=== PATIENT | male | born 1980 | race Caucasian/White ===

== ENCOUNTER 2022-09-26 11:22 | Outpatient (CLI) | payer OTHER, SELFPAY ==
--- OUTSIDE RECORDS SUMMARY | 2022-09-26 11:27 | XMS_ITS ---
:1980 Author Organization [facility] Address [facility] [place] [address] Care Team Providers Name Role Phone OliviaJonna pemberton Unavailable Unavailable PROBLEMS Unknown Problems ALLERGIES No Information ENCOUNTERS IMMUNIZATIONS No Known Immunizations SOCIAL HISTORY No smoking Hx information available REASON FOR REFERRAL FUNCTIONAL STATUS PLAN OF CARE VITAL SIGNS MEDICATIONS Unknown Medications PROCEDURES RESULTS No Results REASON FOR VISIT Insurance Providers
[2022-09-26 18:12] LABS: Albumin* 4.3 g/dL (3.3-5.0)
[2022-09-26 18:16] LABS: Alanine Aminotransferase* 32 U/L (4-50); Alkaline Phosphatase* 55 U/L (40-150); Aspartate Amino Transferase* 27 U/L (12-35); Bilirubin Direct* 0.2 mg/dL (0.0-0.5); Bilirubin Total* 0.8 mg/dL (0.1-1.5); Lipase* 652 U/L (23-300); Total Protein* 6.7 g/dL (6.0-8.3)
[2022-09-26 18:19] LABS: C Reactive Protein* < 0.5 mg/dL (0.5-1.0)
[2022-09-26 18:47] LABS: TSH With Reflex to FT4* 0.884 uIU/mL (0.270-4.200)
[2022-09-26 18:48] LABS: PSA Screen* 1.06 ng/mL (0.10-4.00)
== END 2022-09-26 11:23 | disposition home or self-care (01) ==
PROVIDERS: PCP Family Medicine; Visit Provider Emergency Medicine
DX: R63.4 Abnormal weight loss (principal); I10 Essential (primary) hypertension; E78.00 Pure hypercholesterolemia, unspecified; D68.51 Activated protein C resistance
CPT/HCPCS: 80076; 83690; 84153; 84443; 86140

== ENCOUNTER 2022-10-01 14:58 | Outpatient (CLI) | payer OTHER, SELFPAY ==
--- OUTSIDE RECORDS SUMMARY | 2022-10-01 15:00 | XMS_ITS ---
:1980 Author Organization [facility] Address [address] [place] [address] Care Team Providers Name Role Phone Jonna Baker Unavailable Unavailable PROBLEMS Unknown Problems ALLERGIES No Information ENCOUNTERS Encounter Location Date Diagnosis [facility] [address] [place], [place] [id number] [facility] [address], [place] [address] [facility] [address], [place] [address] [facility] [address] Aug, [place] [address] [facility] [address] Aug, [place] [address] IMMUNIZATIONS No Known Immunizations SOCIAL HISTORY Never Assessed REASON FOR REFERRAL FUNCTIONAL STATUS PLAN OF CARE VITAL SIGNS MEDICATIONS Unknown Medications PROCEDURES Procedure Date Ordered Result Body Site EEG CONT REC W/VID NEWSPAPER WRITER December 13, 2019 HOSPITAL DISCHARGE DAY December 14, 2019 VEEG EA 12-26HR CONT MNTR December 14, 2019 VEEG EA 12-26HR CONT MNTR December 13, 2019 EEG PHY/QHP EA INCR W/VEEG December 14, 2019 EEG PHY/QHP EA INCR W/VEEG December 13, 2019 RESULTS No Results REASON FOR VISIT Admit Scheduled 12/13/19, Pt called to cxl Appt Prior auth - Admit, New Admit-LM MRI PRIOR, New Admit - scheduled Insurance Providers Health Health Health Health Health Member Patient Patient Patient Patient Patient Subscriber Subscriber Subscriber Group Insurance Plan Plan Plan Plan ID Relationship Address Phone Name Date of ID Name Date of No Type Insurance Insurance Insurance Coverage to Subscriber Address Phone Name Dates HEALTHPART [phone] HEALTHPART self Jt 1979 [id number] NERS 1289 55 NERS Abdias [facility] [id number] [facility] [phone] LEAGUE OF self Jt [id number] [address] [address]
[2022-10-01 21:58] LABS: Chloride* 102 mmol/L (96-114); Potassium* 4.2 mmol/L (3.6-5.1); Sodium* 140 mmol/L (135-149)
[2022-10-01 22:01] LABS: Blood Urea Nitrogen* 12 mg/dL (5-24); Carbon Dioxide* 28 mmol/L (20-32); Creatinine* 1.3 mg/dL (0.5-1.5); Estimated Glomerular Filt Rate 70 ml/min; Glucose* 93 mg/dL (60-115)
[2022-10-01 22:02] LABS: Calcium* 9.4 mg/dL (8.4-10.6)
[2022-10-01 22:37] LABS: HIV 1/2/P24 Combo Screen* Negative (Negative)
[2022-10-01 22:45] LABS: Hepatitis C Virus Antibody* Negative (Negative)
== END 2022-10-01 14:59 | disposition home or self-care (01) ==
PROVIDERS: PCP Family Medicine; Visit Provider Emergency Medicine
DX: R63.4 Abnormal weight loss (principal); R74.8 Abnormal levels of other serum enzymes; I10 Essential (primary) hypertension; D68.51 Activated protein C resistance; E78.00 Pure hypercholesterolemia, unspecified
CPT/HCPCS: 80048; 83516; 86703; 86803

== ENCOUNTER 2022-10-28 11:54 | Outpatient (CLI) | payer OTHER, SELFPAY ==
[2022-10-28 10:08] LABS: Chloride* 107 mmol/L (96-114)
[2022-10-28 10:09] LABS: Albumin* 4.4 g/dL (3.3-5.0)
[2022-10-28 10:10] LABS: Potassium* 4.4 mmol/L (3.6-5.1); Sodium* 142 mmol/L (135-149)
[2022-10-28 10:11] LABS: Carbon Dioxide* 29 mmol/L (20-32); Creatinine* 1.3 mg/dL (0.5-1.5); Estimated Glomerular Filt Rate 70 ml/min
[2022-10-28 10:12] LABS: Alkaline Phosphatase* 50 U/L (40-150); Aspartate Amino Transferase* 24 U/L (12-35); Bilirubin Total* 0.8 mg/dL (0.1-1.5); Blood Urea Nitrogen* 14 mg/dL (5-24); Calcium* 9.4 mg/dL (8.4-10.6); Cholesterol* 158 mg/dL (90-199); Glucose* 93 mg/dL (60-115); Lipase* 370 U/L (23-300); Total Protein* 6.9 g/dL (6.0-8.3)
[2022-10-28 10:13] LABS: Alanine Aminotransferase* 28 U/L (4-50); HDL Cholesterol* 40 mg/dL (>=40); LDL Cholesterol Calculated 80 mg/dL (<100); Triglycerides* 189 mg/dL (40-149)
== END 2022-10-28 11:55 | disposition home or self-care (01) ==
PROVIDERS: PCP Family Medicine; Visit Provider Family Medicine
DX: Z00.00 Encounter for general adult medical examination without abnormal findings (principal); R74.8 Abnormal levels of other serum enzymes; Z13.6 Encounter for screening for cardiovascular disorders
CPT/HCPCS: 80053; 80061; 83690

== ENCOUNTER 2022-11-29 15:14 | Outpatient (CLI) | payer OTHER, SELFPAY ==
[2022-11-29 17:29] LABS: Lipase* 405 U/L (23-300)
== END 2022-11-29 15:15 | disposition home or self-care (01) ==
LOC: NFLDREF 15:14
PROVIDERS: PCP Family Medicine; Visit Provider Family Medicine
DX: R74.8 Abnormal levels of other serum enzymes (principal)
CPT/HCPCS: 83690

== ENCOUNTER 2022-12-12 10:12 | Outpatient (CLI) | payer OTHER, SELFPAY ==
--- OUTSIDE RECORDS SUMMARY | 2022-12-12 10:16 | XMS_ITS ---
:1980 Author Organization [facility] Address [address] [place] [address] Care Team Providers Name Role Phone Jonna Baker Unavailable Unavailable PROBLEMS Unknown Problems ALLERGIES No Information ENCOUNTERS Encounter Location Date Diagnosis [facility] [address] [place], [place] [id number] [facility] [address], [place] [address] [facility] [address], [place] [address] [facility] [address] Aug, [place] [address] [facility] [address] Aug, [place] [address] IMMUNIZATIONS No Known Immunizations SOCIAL HISTORY Never Assessed REASON FOR REFERRAL FUNCTIONAL STATUS PLAN OF CARE VITAL SIGNS MEDICATIONS Unknown Medications PROCEDURES Procedure Date Ordered Result Body Site EEG CONT REC W/VID BUREAU CHIEF December 13, 2019 HOSPITAL DISCHARGE DAY December [...] Coverage to Subscriber Address Phone Name Dates LEAGUE OF [phone] LEAGUE OF self Jt [id number] [address] [address] HEALTHPART [phone] HEALTHPART self Jt 1980 [id number] NERS 1289 55 NERS Abdias [facility] [id number]
== END 2022-12-12 10:13 | disposition home or self-care (01) ==
PROVIDERS: PCP Family Medicine; Visit Provider Family Medicine
DX: Z00.00 Encounter for general adult medical examination without abnormal findings (principal); I10 Essential (primary) hypertension; E78.00 Pure hypercholesterolemia, unspecified; D68.51 Activated protein C resistance; R74.8 Abnormal levels of other serum enzymes; R63.4 Abnormal weight loss
CPT/HCPCS: 80053; 82150; 83690; 86803; 87340

== ENCOUNTER 2022-12-16 10:12 | Outpatient (CLI) | payer OTHER, SELFPAY | END 2022-12-16 10:13 | disposition home or self-care (01) | LOC: NFLDREF 11:02 | PROVIDERS: PCP Family Medicine; Visit Provider Family Medicine | DX: Z00.00 Encounter for general adult medical examination without abnormal findings (principal); R63.4 Abnormal weight loss; R74.8 Abnormal levels of other serum enzymes | CPT/HCPCS: 82150; 83615 ==

== ENCOUNTER 2022-12-18 08:06 | Outpatient (CLI) | payer OTHER, SELFPAY ==
--- OUTSIDE RECORDS SUMMARY | 2022-12-18 08:08 | XMS_ITS ---
:1980 Author Organization [facility] Address [address] [place] [address] Care Team Providers Name Role Phone Jonna Baker Unavailable Unavailable PROBLEMS Unknown Problems ALLERGIES No Information ENCOUNTERS Encounter Location Date Diagnosis [facility] [address] [place], [place] [id number] [facility] [address], [place] [address] [facility] [address], [place] [address] [facility] [address] Aug, [place] [address] [facility] [address] Aug, [place] [address] IMMUNIZATIONS No Known Immunizations SOCIAL HISTORY Never Assessed REASON FOR REFERRAL FUNCTIONAL STATUS PLAN OF CARE VITAL SIGNS MEDICATIONS Unknown Medications PROCEDURES Procedure Date Ordered Result Body Site EEG CONT REC W/VID CHIEF OF STAFF December 13, 2019 VEEG EA 12-26HR CONT MNTR December 14, 2019 VEEG EA 12-26HR CONT MNTR December 13, 2019 HOSPITAL DISCHARGE DAY December 14, 2019 EEG PHY/QHP EA INCR W/VEEG December 13, 2019 EEG PHY/QHP EA INCR W/VEEG December 14, 2019 RESULTS No Results REASON FOR VISIT [...] [phone] HEALTHPART self Jt 1979 [id number] NERS [address] [facility] [id number] [facility] [phone] LEAGUE OF self Jt [id number] [address] [address]
--- NOTE | 2022-12-18 09:15 | CRLHL7_ITS ---
For Patients: As a result of the Century Cures Act, medical imaging exams and procedure reports are released immediately into your electronic medical record. You may view this report before your referring provider. If you have questions, please contact your health care provider. CLINICAL HISTORY: WEIGHT LOSS, ELEVATED LIPASE COMPARISON: CT 10/03/2022 TECHNIQUE: Real time pagan scale imaging and color Doppler analysis was performed of the abdomen. FINDINGS: Sonographic imaging demonstrates normal size and uniform echotexture of the liver. The spleen is of normal size. The pancreas appears normal. The proximal abdominal aorta and IVC appear normal. There is no evidence of ascites. The gallbladder is of normal size and there may be slight layering sludge within the gallbladder lumen. The gallbladder wall measures 1 mm in thickness. The common bile duct measures 4 mm in size within the madisyn hepatis. The right kidney measures 10.8 cm in length and the left kidney measures 11.0 cm. There is no evidence of a renal calculus or hydronephrosis. Nonobstructing renal calculi again noted along with small renal cortical cysts. IMPRESSION: Nonobstructing renal calculi. Slight sludge in the gallbladder lumen may be present. Normal liver and pancreas. Dictated by Shadi Bowen MD @ 12/18/2022 11:02:07 AM (Electronically Signed)
== END 2022-12-18 08:07 | disposition home or self-care (01) ==
LOC: US 08:07
PROVIDERS: PCP Family Medicine; Visit Provider Family Medicine
DX: R74.8 Abnormal levels of other serum enzymes (principal); N20.0 Calculus of kidney; R63.4 Abnormal weight loss
CPT/HCPCS: 76700

== ENCOUNTER 2023-01-15 09:20 | Outpatient (CLI) | payer OTHER, SELFPAY | END 2023-01-15 09:21 | disposition home or self-care (01) | LOC: LKVREF 16:41 | PROVIDERS: Emergency Medicine; PCP Family Medicine; Referring Provider Family Medicine; Visit Provider Family Medicine | DX: R74.8 Abnormal levels of other serum enzymes (principal) | CPT/HCPCS: 83615; 83690 ==

== ENCOUNTER 2023-06-20 16:18 | Outpatient (CLI) | payer OTHER, SELFPAY ==
--- OUTSIDE RECORDS SUMMARY | 2023-06-26 12:26 | XMS_ITS ---
Author Name Jonna Baker Address [address] [place] [address] Organization [facility] Address [address] [place] [address] Care Team Providers Care Director Business Name Role Phone OliviaJonna pemberton Unavailable [phone] PROBLEMS Unknown Problems ALLERGIES No Information ENCOUNTERS Encounter Location Date Diagnosis [facility] [address] [place] [address] Dec, [facility] [address] [place] [phone] Oct, [facility] [address] [place] [address] Oct, [facility] [address] [place] [address] Aug, [facility] [address] [place] [phone] Aug, IMMUNIZATIONS No Known Immunizations SOCIAL HISTORY Never Assessed REASON FOR REFERRAL FUNCTIONAL STATUS PLAN OF CARE VITAL SIGNS MEDICATIONS Unknown Medications PROCEDURES Procedure Date Ordered Result Body Site EEG CONT REC W/VID MANAGER ENGLISH December 13, 2019 VEEG EA 12-26HR CONT [...] - Admit, New Admit-LM MRI PRIOR, New Admit- scheduled Insurance Providers Health Insurance Type Health Plan Insurance Address Health Plan Insurance Phone Health Plan Insurance Name Health Plan Coverage Dates Member ID Patient Relationship to Subscriber Patient Address Patient Phone Patient Name Patient Date of Subscriber ID Subscriber Name Subscriber Date of Group No HEALTHPART NERS [address] [facility] [id number] HEALTHPART NERS self Jt Calero [id number] [address] [facility] self Jt Calero [id number]
== END 2023-06-20 16:19 | disposition home or self-care (01) ==
LOC: NFLDREF 06-26 12:24
PROVIDERS: PCP Family Medicine; Referring Provider Family Medicine; Visit Provider Family Medicine
DX: R74.8 Abnormal levels of other serum enzymes (principal)
CPT/HCPCS: 83690

== ENCOUNTER 2023-07-30 09:15 | Outpatient (CLI) | payer OTHER, SELFPAY ==
--- OUTSIDE RECORDS SUMMARY | 2023-08-02 13:18 | XMS_ITS | Patient Health Record ---
Author Name Unknown Organization Unknown Care Team Providers Care Full Stack Software Developer Name Role Phone Fabricio Gaston MD Primary Care Provider Unavailab Suly Laws Unavailable [phone] Khloe Underwood Unavailable Unavailable REASON FOR REFERRAL No Information PLAN OF TREATMENT No Information Insurance Providers Payer Name Payer Address Payer Phone Subscriber Number Group Number Insured Name Patient Relationship to Insured Coverage Start Date Coverage End Date [address] [phone] 5-[facility] [id number] Jt Calero Self - patient is the insured 6 [facility] [address] [place], [place] [id number] Jt Calero Self - patient is the insured 9
== END 2023-07-30 09:16 | disposition home or self-care (01) ==
LOC: NFLDREF 08-02 13:17
PROVIDERS: PCP Family Medicine; Referring Provider Family Medicine; Visit Provider Family Medicine
DX: R74.8 Abnormal levels of other serum enzymes (principal)
CPT/HCPCS: 83690

== ENCOUNTER 2024-03-19 09:16 | Outpatient (CLI) | payer OTHER, SELFPAY ==
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
--- OUTSIDE RECORDS SUMMARY | 2024-03-19 09:20 | XMS_ITS | Clinical Summary ---
Author Organization [facility] [place] [address] Phone Care Team Providers Care Heel Shaver Name Role Phone Pcp, No Primary Care Provider UnavailCata Long OTR/L Unavailable [phone] Anastasia Funes DO Unavailable [phone] Source Comments [employer] is fully rolled out on MC10. Last update 03/10/09.[facility] Allergies Active Allergy Reactions Criticality Noted Date [...] habits have been strongly encouraged. Please see [facility] for most recent results. Last Assessment & Plan: He will see PCP latter this week and will have blood work done then. He understands the risks of polypharmacy and SGA. Phobia, flying 12/23/2019 Overview: Pt has needed 20 mg of valium to manage fear of flying. Last Assessment & Plan: He did well with his trip to [place], reports the combination of valium and current [...] and panic Recurrent major depressive disorder, in [facility]ha [facility] ([facility]) 10/28/2019 Overview: Depression has developed as symptoms [...] nasal bon e, initial encounter 12/04/2015 10/29/2019 Encounters Date Type Department Care Team Description 03/16/2024 10:40 AM CDT Telemedicine [facility] Psych[facility] [address] [place] [address] Anastasia Funes, PTSD (post-traumatic stress disorder) (Primary Dx); High risk medication use; Panic disorder without agoraphobia; Recurrent major depressive disorder, in remission (CMS); TOMASA (generalized anxiety disorder) Discharge Disposition: Discharged to home or self care (routine discharge) 03/08/2024 Refill [facility] Psych[facility] [address] [place] [address] Anastasia Funes, DO Other 01/20/2024 10:40 AM CDT Telemedicine [facility] Psych[facility] [address] [place] [address] Anastasia Funes, DO PTSD (post-traumatic stress disorder) (Primary Dx); TOMASA (generalized anxiety disorder); Panic disorder without agoraphobia; Hypnagogic hallucinations; Phobia, flying; High risk medication use Discharge Disposition: Discharged to home or self care (routine discharge) 01/14/2024 Refill [facility] Psych[facility] [address] [place] [address] Anastasia Funes, DO Other 01/10/2024 Refill [facility] [address] [place] [address] Anastasia Funes, DO Other 01/07/2024 Refill [facility] [address] [place] [address] Anastasia Funes, DO Other from Last 3 Months Immunizations Name Administration Dates Next Due Tetanus [...] CDT Oxygen Saturation 96% 12/05/2015 4:16 AM [employer] REPAIRER Inhaled Oxygen Concentration - - Weight 76.7 kg (169 lb) 06/23/2023 10:14 AM CDT Height 177.8 cm (5' 10) 08/27/2022 10:03 AM [employer] REPAIRER Body Mass Index 24.25 08/27/2022 10:03 AM [employer] REPAIRER Plan of Treatment Upcoming Encounters Date Type Department Care Team (Late st Contact Info) Description 06/14/2024 10:20 AM CDT Office Visit [facility] Psych[facility] [address] [place] [address] Anastasia Funes DO [address] [place] [address] Scheduled Discharge Disposition: Discharged to home or self care (routine discharge) Health Maintenance Due Date Last Done Comments Dental Oral Exam 1980 Dental Prophylaxis 1979 Dental X-Ray: Bitewings 1979 Lipid Screening 1980 Periodontal Maintenance 1993 HIV Screening 1994 PREVENTATIVE VISIT 1997 HEALTH MAINTENANCE PROTOCOL 1998 Imm: HepB (1 of 3 - 19+ 3-dose series) 1998 COVID-19 Vaccine (5 - 2023-24 season) 2023 06/20/2022, 08/06/2021, 01/09/2021, Additional history exists Depression Management 05/10/2024 11/10/2023 TD/TDAP ADULTS 12/03/2025 12/04/2015 INFLUENZA VACCINE Completed 08/19/2023 HIB Aged Out No longer eligi ble based on patient's age to complete this topic HPV Aged Out No longer eligi ble based on patient's age to complete this topic Imm: Pneumonia Peds or At-Risk less than 65 years Aged Out No longer yue gible based on patient's age to complete this topic RSV Immunoglobulin Aged Out No longer eligible based on patient's age to complete this topic [id number] Workers Comp Employer 1980 %Jt Calero [address] [place] [address] Jt Calero [employer] 1980 [address] [place] [address] Advance Directives For more information, please contact: [phone] * Full Code (Latest Code Status on File) Date Activated Date Inactivated Comments 12/04/2015 8:41 AM 12/05/2015 3:08 PM Question Answer Comments Discussed Code Status With Whom? Not discussed Care Teams Heel Shaver Relationship Specialty Start Date End Date Pcp, [place] [address] PCP - General 12/04/15 Cata Velasco, OTR/L [facility] [address] [place], [place] [phone] Occupational Therapy 12/27/15 Anastasia Funes DO [address] [place], [place] [address] Psychiatrist Outpatient Psychiatry 02/16/18
--- OUTSIDE RECORDS SUMMARY | 2024-03-19 09:20 | XMS_ITS | Encounter Summary ---
Author Organization [facility] Address [address] [place] [address] Phone Care Team Providers Care Director Skills Name Role Phone Pcp, No Primary Care Provider Unavailrashi e Cata Velasco OTR/L Unavailable Anastasia Funes DO Unavailable Reason for Visit * Reason Comments Other Encounter Details Date Type Department Care Team (Late st Contact Info) Description 03/08/2024 Refill [facility] [place] [place] Psych[facility] [address] [place], [place] [id number] Anastasia Funes, DO [address] [place] [address] Other Social History Tobacco Use Types Packs/Day Years [...] on file documented as of this encounter Miscellaneous Notes * Telephone Encounter - Anastasia Potter RN - 03/08/2024 9:30 AM CDT Patient requesting refill on lorazepam 1 mg tabs Last seen by Dr. Funes on 01/20/24 Pending appt on 03/16/[address] Funes to approve/deny documented in this encounter Plan of Treatment Upcoming Encounters Date Type Department Care Team (Late st Contact Info) Description 06/14/2024 10:20 AM CDT Office Visit [facility] [place] [place] Psych[facility]ry [facility] 

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
--- OUTSIDE RECORDS SUMMARY | 2024-03-19 09:21 | XMS_ITS | Encounter Summary ---
Author Organization [facility] Address [address] [place] [address] Phone Care Team Providers Care Opto Mechanical Technician Name Role Phone Pcp, No Primary Care Provider Unavailrashi e Cata Velasco OTR/L Unavailable [phone] Anastasia Funes DO Unavailable [phone] Reason for Visit * Reason Comments Other Encounter Details Date Type Department Care Team (Late st Contact Info) Description 01/07/2024 Refill [facility] Psych[facility] [address] [place] [address] Anastasia Funes DO [address] [place], [place] [address] Other Social History Tobacco Use Types Packs/Day [...] on file documented as of this encounter Plan of Treatment Upcoming Encounters Date Type Department Care Team (Late Contact Info) Description 06/14/2024 10:20 AM CDT Office Visit [facility] Psychiatry Clinic [facility] [address] [place] [address] Anastasia Funes DO [address] [place] [address] Scheduled Discharge Disposition: Discharged to home or self care (routine discharge) documented as of this encounter Visit Diagnoses Not on filedocumented in this encounter Additional Health Concerns Assessment Noted Time PHQ-9 Depression Total Score: 2 11/10/19 24 11:11 AM SITE SUPERINTENDENT PHQ-2 Depression Total Score: 0 11/10/19 11:11 AM SITE SUPERINTENDENT documented as of this encounter Care Teams Opto Mechanical Technician Relationship Specialty Start Date End Date Pcp, No [facility] [place] [address] PCP - General 12/04/15 Cata Velasco, OTR/L [facility] [address] [place] [address] Occupational Therapy 12/27/15 Anastasia Funes DO [address] [place] [address] Psychiatrist Outpatient Psychiatry 02/16/18 documented as of this encounter
--- OUTSIDE RECORDS SUMMARY | 2024-03-19 09:21 | XMS_ITS | Encounter Summary ---
Author Organization [facility] Address [address] [place] [address]. [place] [address] Phone Care Team Providers Care Car Rider Name Role Phone Pcp, No Primary Care Provider Unavailrashi e Cata Velasco OTR/L Unavailable Anastasia Funes DO Unavailable Encounter Details Date Type Department Care Team (Late Contact Info) Description 10/16/2018 Pharmacy Prior Authorization [facility] [address] [facility] [address] [place] [address] Anastasia Funes DO [address] [place], [place] [address] Social History Tobacco Use Types Packs/Day Years Used Date Smoking Tobacco: Former Smokeless Tobacco: Never Alcohol Use Standard Drinks/Week Comments No 0 (1 standard drink = 0.6 oz pur e alcohol) PHQ-2 Answer Date Recorded PHQ-2 Score 1 07/01/2018 Sex and Gender Information Value Date Recorded Sex Assigned at Not on file Gender Identity Not on file Sexual Orientation Not on file documented as of this encounter Plan of Treatment Upcoming Encounters Date Type Department Care Team (Late Contact Info) Description 06/14/2024 10:20 AM CDT Office Visit [facility] Psych[facility] [address] [place] [address] Anastasia Funes DO [address] [place], [place] [address] Scheduled Discharge Disposition: Discharged to home or self care (routine discharge) documented as of this encounter Visit Diagnoses Not on filedocumented in this encounter Additional Health Concerns Assessment Noted Time PHQ-9 Depression Total Score: 9 12/24/19 18 9:19 AM CDT PHQ-2 Depression Total Score: 1 12/24/19 18 9:19 AM CDT documented as of this encounter Care Teams Car Rider Relationship Specialty Start Date End Date Pcp, No [facility] [place] [address] PCP - General 12/04/15 Cata Velasco, OTR/L [facility] [address] [place], [place] [address] Occupational Therapy 12/27/15 Anastasia Funes DO [address] [place] [address] Psychiatrist Outpatient Psychiatry 02/16/18 documented as of this encounter
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
--- OUTSIDE RECORDS SUMMARY | 2024-03-19 09:21 | XMS_ITS | Encounter Summary ---
Author Organization [facility] Address [address] [place] [address] Phone Care Team Providers Care Content Manager Name Role Phone Pcp, No Primary Care Provider Unavailrashi e Cata Velasco OTR/L Unavailable Anastasia Funes DO Unavailable [phone] Reason for Visit * Reason Comments Other Encounter Details Date Type Department Care Team (Late st Contact Info) Description 01/10/2024 Refill [facility] [address] [place], [place] [id number] Anastasia Funes, DO [address] [place], [place] [id number] Other Social History Tobacco Use Types Packs/Day [...] encounter Miscellaneous Notes * Telephone Encounter - Bryant Rico RN - 01/12/2024 8:56 AM CDT Refill request for Ativan 1 mg 3 times daily. Last prescription was issued on 08/19/2023 for 90 tablets with 2 refills, so it appears client is taking it inconsistently. Client was last seen by Dr. Funes on 11/11/2023 and has a follow-up appointment with provider on 01/20/2024. Ativan prescription will be pended for 90 tablets with [address] Funes's absence I will send to Dr. Campos for signature. documented in this encounter Plan of Treatment Upcoming Encounters Date Type Department Care Team (Late st Contact Info) Description 06/14/2024 10:20 AM CDT Office Visit [facility] [address] [place] [address] Anastasia Funes DO [address] [place] [address] Scheduled Discharge Disposition: Discharged to home or self care (routine discharge) documented as of this encounter Visit Diagnoses Not on filedocumented in this encounter Additional Health Concerns Assessment Noted Time PHQ-9 Depression Total Score: 2 11/10/19 24 11:11 AM LINE REPAIRER PHQ-2 Depression Total Score: 0 11/10/19 24 11:11 AM LINE REPAIRER documented as of this encounter Care Teams Content Manager Relationship Specialty Start Date End Date Pcp, No [facility] [place] [address] PCP - General 12/04/15 Cata Velasco, OTR/L [facility] [address] [place] [address] Occupational Therapy 12/27/15 Anastasia Funes DO [address] [place] [address] Psychiatrist Outpatient Psychiatry 02/16/18 documented as of this encounter
--- OUTSIDE RECORDS SUMMARY | 2024-03-19 09:21 | XMS_ITS | Encounter Summary ---
Author Organization [facility] Address [address] [place] [id number] Phone Care Team Providers Care Bindery Chief Name Role Phone Pcp, No Primary Care Provider Unavailrashi e Cata Velasco OTR/L Unavailable [phone] Anastasia Funes DO Unavailable Reason for Visit * Reason Comments Other Encounter Details Date Type Department Care Team (Late st Contact Info) Description 01/14/2024 Refill [facility] [address] [place] [address] Anastasia Funes DO [address] [place], [place] [id number] Other Social History Tobacco Use Types Packs/Day [...] Description 06/14/2024 10:20 AM CDT Office Visit [facility] [address] [place] [address] Anastasia Funes DO [address] [place] [address] Scheduled Discharge Disposition: Discharged to home or self care (routine discharge) documented as of this encounter Visit Diagnoses Not on filedocumented in this encounter Additional Health Concerns Assessment Noted Time PHQ-9 Depression Total Score: 2 11/10/19 24 11:11 AM TOOL COORDINATOR PHQ-2 Depression Total Score: 0 11/10/19 11:11 AM TOOL COORDINATOR documented as of this encounter Care Teams Bindery Chief Relationship Specialty Start Date End Date Pcp, No [facility] [place] [address] PCP - General 12/04/15 Cata Velasco, OTR/L [facility] [address] [place] [address] Occupational Therapy 12/27/15 Anastasia Funes DO [address] [place] [address] Psychiatrist Outpatient Psychiatry 02/16/18 documented as of this encounter
== END 2024-03-19 09:17 | disposition home or self-care (01) ==
PROVIDERS: PCP Family Medicine; Visit Provider Family Medicine
DX: E78.00 Pure hypercholesterolemia, unspecified (principal); R74.8 Abnormal levels of other serum enzymes; D68.51 Activated protein C resistance; Z12.5 Encounter for screening for malignant neoplasm of prostate
CPT/HCPCS: 80053; 80061; 83690; G0103

== ENCOUNTER 2025-05-31 09:02 | Outpatient (CLI) | payer OTHER, SELFPAY | END 2025-05-31 09:03 | disposition home or self-care (01) | PROVIDERS: PCP Family Medicine; Visit Provider Family Medicine | DX: Z00.00 Encounter for general adult medical examination without abnormal findings (principal); E78.00 Pure hypercholesterolemia, unspecified; N40.0 Benign prostatic hyperplasia without lower urinary tract symptoms; R63.4 Abnormal weight loss; R74.8 Abnormal levels of other serum enzymes; R53.83 Other fatigue; Z12.5 Encounter for screening for malignant neoplasm of prostate | CPT/HCPCS: 80053; 80061; 83690; 84443; G0103 ==